=== PATIENT | female | born 1945 | race Two or more races ===

== ENCOUNTER 2025-05-27 19:27 | Emergency (ER) | payer OTHER ==
[~2025-05-27] VITALS: Ht 157.5 cm; Wt 115.0 kg
[2025-05-27 19:34] VITALS: BP 128/74; PULSE 71; RESP 14; TEMP 98.7
[2025-05-27 19:36] VITALS: O2SAT 98
--- NOTE | 2025-05-27 19:39 | ECG ---
[facility] Test Date: 2025-05-27 Test Time: 19:34:11 Pat Name: SHEELA WILKINSON Department: [facility] ED Patient ID: [facility]-[id number] Room: Gender: F Multimedia Designer: fide : 1945 Requested By: [facility]ERGENCY EMERGENCY Order Number: [id number] Reading MD: Luis Dorsey Measurements Intervals [place] Rate: 71 P: 30 ME: 181 QRS: -12 QRSD: 109 T: 8 QT: 393 QTc: 428 Interpretive Statements Sinus rhythm Low voltage, precordial leads RSR' in V1 or V2, right VCD or RVH Probable left ventricular hypertrophy Borderline T abnormalities, anterior leads Electronically Signed On 05-31-2025 10:28:49 PST by Luis Dorsey Please click the below link to view image of tracing.
== END 2025-05-27 19:39 | disposition left against medical advice (07) ==
LOC: ER 19:27 → EDBD 19:27 → ER 19:39
DX: R06.02 Shortness of breath (principal); Z53.21 Procedure and treatment not carried out due to patient leaving prior to being seen by health care provider
CPT/HCPCS: 93005